=== PATIENT | male | born 1980 | race Two or more races ===

== ENCOUNTER 2020-07-04 18:14 | Emergency (ER) | payer MEDICAID, OTHER ==
[~2020-07-04] VITALS: Ht 177.8 cm; Wt 90.7 kg
[2020-07-05] MEDS ORDERED: TETANUS-DIPTH-ACEL PERTUSSIS 0.5ML SYR Tdap IM ONE
[2020-07-05] MEDS ORDERED: cefTRIAXone SOD 1,000 MG VL IM ONE
[2020-07-05 00:49] VITALS: BP 118/82
== END 2020-07-05 00:51 | disposition home or self-care (01) ==
LOC: ER 18:14
DX: S01.81XA Laceration without foreign body of other part of head, initial encounter (principal); S09.90XA Unspecified injury of head, initial encounter; X58.XXXA Exposure to other specified factors, initial encounter; Y93.89 Activity, other specified; Y92.89 Other specified places as the place of occurrence of the external cause; Y99.8 Other external cause status
CPT/HCPCS: 12013; 70450; 72125; 90471; 90715; 96372; 99285; J0696; J7030

== ENCOUNTER 2021-07-10 16:29 | Inpatient (IN) | payer MEDICAID, OTHER ==
[~2021-07-10] VITALS: Ht 180.3 cm; Wt 98.9 kg
[2021-07-10 18:39] LABS: Basophils # (auto) 0.1 10 ^3/uL (0-0.2); Eosinophils # (auto) 0.2 10 ^3/uL (0-0.8); Mean Corpuscular Hemoglobin 13.9 pg (28.0-32.0); Mean Corpuscular Volume 49.7 fL (80.0-100.0); Monocytes # (auto) 0.6 10 ^3/uL (0-1.3); Nucleated Red Blood Cells % 0.3 %; Red Blood Cells 3.61 10^6/uL (4.5-5.90)
[2021-07-10 18:40] LABS: Basophils % (auto) 1.5 % (0.0-2.0); Eosinophils % (auto) 4.2 % (0.0-7.0); Hematocrit 17.9 % (41.0-53.0); Lymphocytes # (auto) 1.2 10 ^3/uL (0.4-5.4); Lymphocytes % (auto) 21.7 % (10.0-50.0); Monocytes % (auto) 10.7 % (0.0-12.0); Neutrophils # (auto) 3.6 10 ^3/uL (1.6-8.6); Neutrophils % (auto) 61.9 % (37.0-80.0); Red Cell Distribution Width 19.7 % (11.8-14.3); White Blood Cell 5.8 10^3/uL (4.4-10.8)
[2021-07-10 18:59] LABS: Albumin 3.6 g/dL (3.4-5.0); Calcium 8.2 mg/dL (8.5-10.1)
[2021-07-10 19:08] LABS: BUN/Creatinine Ratio 16.9; Bilirubin, Total 0.8 mg/dL (0.2-1.0); Total Protein 7.1 g/dL (6.4-8.2)
[2021-07-10] MEDS ORDERED: PANTOPRAZOLE 80 MG in SODIUM CHL 0.9% 100 ML IV ONE (21:00)
[2021-07-10] MEDS ORDERED: cefTRIAXone 1GM/50ML D5W 50 ML IV ONE (21:00)
[2021-07-10] MEDS ORDERED: NITROGLYCERIN 0.4 MG SL TAB SL PRN (21:30)
[2021-07-10] MEDS ORDERED: MORPHINE SULFATE INJECTION 2 MG/ML SYRG IV PRN (21:30)
[2021-07-10] MEDS ORDERED: PANTOPRAZOLE 40mg/50ML NS AE 50 ML IV ONE (21:30)
[2021-07-10] MEDS ORDERED: ONDANSETRON HCL 4 MG/2 ML VIAL IV PRN (21:30)
[2021-07-10 22:39] LABS: INR 1.04 (0.9-1.15); Partial Thromboplastin Time 22.8 sec (23.6-33.0)
[2021-07-10 22:45] VITALS: BP 107/74
[2021-07-10 23:00] VITALS: BP 110/66
[2021-07-10] MEDS: SODIUM CHLORIDE 0.9% 1,000 ML IV SCH (23:30)
[2021-07-11] VITALS (11 sets, daily range): BP systolic 102–144; BP diastolic 59–95
[2021-07-11] MEDS: PANTOPRAZOLE 40mg/50ML NS AE 50 ML IV SCH ×6 (01:28→20:24)
[2021-07-11] MEDS: SODIUM CHLORIDE 0.9% 1,000 ML IV SCH (09:16)
[2021-07-11 10:36] LABS: Basophils # (auto) 0.1 10 ^3/uL (0-0.2); Basophils % (auto) 1.5 % (0.0-2.0); Eosinophils # (auto) 0.2 10 ^3/uL (0-0.8); Hematocrit 22.1 % (41.0-53.0); Lymphocytes # (auto) 1.1 10 ^3/uL (0.4-5.4); Mean Corpuscular Hemoglobin 17.1 pg (28.0-32.0); Monocytes # (auto) 0.5 10 ^3/uL (0-1.3); Neutrophils % (auto) 59.9 % (37.0-80.0); Red Blood Cells 3.94 10^6/uL (4.5-5.90); White Blood Cell 4.6 10^3/uL (4.4-10.8)
[2021-07-11 10:39] LABS: Eosinophils % (auto) 3.6 % (0.0-7.0); Lymphocytes % (auto) 24.4 % (10.0-50.0); Mean Corpuscular Hgb Conc. 30.6 g/dL (32.0-36.0); Monocytes % (auto) 10.6 % (0.0-12.0); Neutrophils # (auto) 2.8 10 ^3/uL (1.6-8.6); Nucleated Red Blood Cells % 0.1 %
[2021-07-11 10:50] LABS: Hemoglobin 6.8 g/dL (13.5-17.5)
[2021-07-11 11:01] LABS: Albumin 3.3 g/dL (3.4-5.0); Calcium 8.2 mg/dL (8.5-10.1)
[2021-07-11 11:11] LABS: BUN/Creatinine Ratio 12.1; Bilirubin, Total 1.7 mg/dL (0.2-1.0); Total Protein 6.5 g/dL (6.4-8.2)
[2021-07-11 20:01] LABS: Hematocrit 25.8 % (41.0-53.0); Hemoglobin 8.1 g/dL (13.5-17.5)
[2021-07-12] MEDS: SODIUM CHLORIDE 0.9% 1,000 ML IV SCH ×2 (00:46→20:34)
[2021-07-12] MEDS: PANTOPRAZOLE 40mg/50ML NS AE 50 ML IV SCH ×4 (00:49→18:35)
[2021-07-12 05:00] VITALS: BP 108/67
[2021-07-12 09:00] VITALS: BP 113/66
[2021-07-12] MEDS ORDERED: GASTROGRAFIN 120 ML SOL ONE (09:24)
[2021-07-12] MEDS ORDERED: EZ-GAS II GRANULES (RADIOLOGY USE) PO ONE ×2 (10:48→10:56)
[2021-07-12 12:41] VITALS: BP 118/80
[2021-07-12 14:04] LABS: Basophils # (auto) 0.1 10 ^3/uL (0-0.2); Eosinophils # (auto) 0.2 10 ^3/uL (0-0.8); Monocytes # (auto) 0.4 10 ^3/uL (0-1.3)
[2021-07-12 14:07] LABS: Basophils % (auto) 1.7 % (0.0-2.0); Eosinophils % (auto) 3.6 % (0.0-7.0); Hematocrit 29.2 % (41.0-53.0); Lymphocytes % (auto) 19.8 % (10.0-50.0); Mean Corpuscular Hemoglobin 18.2 pg (28.0-32.0); Mean Corpuscular Hgb Conc. 30.8 g/dL (32.0-36.0); Monocytes % (auto) 7.4 % (0.0-12.0); Neutrophils # (auto) 3.5 10 ^3/uL (1.6-8.6); Neutrophils % (auto) 67.5 % (37.0-80.0); Nucleated Red Blood Cells % 0.4 %; Red Blood Cells 4.96 10^6/uL (4.5-5.90); White Blood Cell 5.2 10^3/uL (4.4-10.8)
[2021-07-12] MEDS ORDERED: GOLYTELY 4L KIT PO ONE (16:00)
[2021-07-12 16:36] VITALS: BP 116/72
[2021-07-12 22:00] VITALS: BP 109/68
[2021-07-13] MEDS: PANTOPRAZOLE 40mg/50ML NS AE 50 ML IV SCH ×5 (00:01→19:30)
[2021-07-13 05:00] VITALS: BP 97/54
[2021-07-13] MEDS ORDERED: MAGNESIUM CITRATE SOLUTION 300 ML BTL PO ONE (06:00)
[2021-07-13 06:06] LABS: Basophils # (auto) 0.1 10 ^3/uL (0-0.2); Basophils % (auto) 1.2 % (0.0-2.0); Lymphocytes # (auto) 1.4 10 ^3/uL (0.4-5.4); Monocytes # (auto) 0.6 10 ^3/uL (0-1.3); Neutrophils % (auto) 62.9 % (37.0-80.0); Nucleated Red Blood Cells % 0.1 %
[2021-07-13 06:13] LABS: Eosinophils # (auto) 0.3 10 ^3/uL (0-0.8); Eosinophils % (auto) 5.3 % (0.0-7.0); Hemoglobin 7.9 g/dL (13.5-17.5); Lymphocytes % (auto) 21.4 % (10.0-50.0); Mean Corpuscular Hemoglobin 17.3 pg (28.0-32.0); Mean Corpuscular Hgb Conc. 29.4 g/dL (32.0-36.0); Mean Corpuscular Volume 58.9 fL (80.0-100.0); Monocytes % (auto) 9.2 % (0.0-12.0); Red Blood Cells 4.59 10^6/uL (4.5-5.90); White Blood Cell 6.4 10^3/uL (4.4-10.8)
[2021-07-13 06:35] LABS: Red Cell Distribution Width 36.4 % (11.8-14.3)
[2021-07-13] MEDS ORDERED: SODIUM CHLORIDE LOCK 10 ML ONE (08:29)
[2021-07-13 08:34] VITALS: BP 102/60
[2021-07-13 12:54] VITALS: BP 122/62
[2021-07-13] MEDS: MIDAZOLAM HCL 5 MG/ML-1ML VIAL ONE ×3 (12:57→13:12)
[2021-07-13] MEDS: diphenhdrAMINE HCL 50 MG/1 ML VL ONE ×2 (12:57→13:03)
[2021-07-13] MEDS: fentaNYL CITRATE 100 MCG/2 ML VL ONE ×3 (12:57→13:03)
[2021-07-13] MEDS: SODIUM CHLORIDE 0.9% 1,000 ML IV SCH ×2 (16:56→19:31)
[2021-07-13 17:00] VITALS: BP 101/54
[2021-07-13 22:00] VITALS: BP 104/61
[2021-07-14 05:00] VITALS: BP 93/57
[2021-07-14 06:02] LABS: Basophils # (auto) 0.1 10 ^3/uL (0-0.2); Eosinophils # (auto) 0.4 10 ^3/uL (0-0.8); Lymphocytes # (auto) 1.4 10 ^3/uL (0.4-5.4); Mean Corpuscular Hemoglobin 18.4 pg (28.0-32.0); Mean Corpuscular Hgb Conc. 31.4 g/dL (32.0-36.0); Mean Corpuscular Volume 58.6 fL (80.0-100.0); Monocytes # (auto) 0.6 10 ^3/uL (0-1.3); White Blood Cell 5.6 10^3/uL (4.4-10.8)
[2021-07-14 06:06] LABS: Hematocrit 26.7 % (41.0-53.0); Hemoglobin 8.4 g/dL (13.5-17.5); Lymphocytes % (auto) 25.5 % (10.0-50.0); Neutrophils % (auto) 53.5 % (37.0-80.0); Nucleated Red Blood Cells % 0.1 %; Red Blood Cells 4.55 10^6/uL (4.5-5.90)
[2021-07-14] MEDS: SODIUM CHLORIDE 0.9% 1,000 ML IV SCH (07:52)
[2021-07-14 09:00] VITALS: BP 107/61
[2021-07-14] MEDS ORDERED: HYDR2.5C39 TOP (09:09)
[2021-07-14] MEDS ORDERED: DOCU-94 PO (09:09)
[2021-07-14] MEDS ORDERED: PANT40T PO (09:09)
[2021-07-14] MEDS ORDERED: FERR-7 PO (09:09)
[2021-07-14 10:35] VITALS: BP 107/61
== END 2021-07-14 12:53 | disposition home or self-care (01) | DRG 253 ==
LOC: ER 16:31 → TELE 21:17 → TELE-WESTW 23:44
PROVIDERS: ADMIT Nurse Practitioner; ATTEND Family Medicine
PROC: 30233N1 Transfusion of Nonautologous Red Blood Cells into Peripheral Vein, Percutaneous Approach (ICD-10-PCS; 2021-07-10)
PROC: 0DJD8ZZ Inspection of Lower Intestinal Tract, Via Natural or Artificial Opening Endoscopic (ICD-10-PCS; principal; 2021-07-13 12:51)
DX: K62.5 Hemorrhage of anus and rectum (principal); D64.9 Anemia, unspecified; E66.9 Obesity, unspecified; K64.8 Other hemorrhoids; Z20.822 Contact with and (suspected) exposure to COVID-19; Z68.29 Body mass index [BMI] 29.0-29.9, adult; Z86.73 Personal history of transient ischemic attack (TIA), and cerebral infarction without residual deficits; Z68.30 Body mass index [BMI] 30.0-30.9, adult
CPT/HCPCS: 36415; 45378; 71045; 74176; 74246; 80053; 82270; 84484; 85014; 85018; 85025; 85610; 85730; 86850; 86900; 86901; 86920; 87426; 93005; 96365; 96368; C9113; G0378; J0696; J2250